=== PATIENT | female | born 1985 | race Caucasian/White ===

== ENCOUNTER 2018-05-04 16:22 | Emergency (ER) | payer SELFPAY ==
[2018-05-04] MEDS ORDERED: Lidocaine 1% w/Epinephrine 1:100K 20 ML VIAL ONE ×3 (17:26→17:30)
[2018-05-04 17:33] LABS: Pregnancy Test - Urine (BHCG) Negative (Negative); Pregu Control Background? CLEAR/WHITE (CLR/WHITE); Pregu Control Bar Appear? YES (CONTROL BAR); Specific Gravity 1.037 (1.002-1.036)
== END 2018-05-04 18:05 | disposition home or self-care (01) ==
LOC: ERS 16:22
DX: L02.411 Cutaneous abscess of right axilla (principal); K21.9 Gastro-esophageal reflux disease without esophagitis; I10 Essential (primary) hypertension; F17.210 Nicotine dependence, cigarettes, uncomplicated; Z79.899 Other long term (current) drug therapy
CPT/HCPCS: 10061; 81025; J2001

== ENCOUNTER 2018-05-07 16:19 | Emergency (ER) | payer SELFPAY | END 2018-05-07 17:40 | disposition home or self-care (01) | LOC: ERS 16:19 | DX: Z48.817 Encounter for surgical aftercare following surgery on the skin and subcutaneous tissue (principal); Z71.6 Tobacco abuse counseling; K21.9 Gastro-esophageal reflux disease without esophagitis; I10 Essential (primary) hypertension; F17.210 Nicotine dependence, cigarettes, uncomplicated | CPT/HCPCS: 99406 ==

== ENCOUNTER 2018-05-20 16:12 | Emergency (ER) | payer SELFPAY ==
[2018-05-20] MEDS ORDERED: Acetaminophen 500 MG TAB ONE (17:49)
[2018-05-20] MEDS ORDERED: Lidocaine 4% Cream 5 GM TUBE w/ Tegaderm ONE (17:49)
== END 2018-05-20 19:20 | disposition home or self-care (01) ==
LOC: ERS 16:12
DX: L02.411 Cutaneous abscess of right axilla (principal); J06.9 Acute upper respiratory infection, unspecified; K21.9 Gastro-esophageal reflux disease without esophagitis; I10 Essential (primary) hypertension; F41.9 Anxiety disorder, unspecified; F17.210 Nicotine dependence, cigarettes, uncomplicated; Z79.899 Other long term (current) drug therapy
CPT/HCPCS: 10061; 87081; 87430; 87804

== ENCOUNTER 2018-12-23 07:27 | Emergency (ER) | payer SELFPAY ==
[2018-12-23 07:50] LABS: #Basophils 0.1 thou/uL (0.0-0.2); #Eosinphils 0.1 thou/uL (0.0-0.7); #Lymphocytes 2.1 thou/uL (1.20-3.40); #Neutrophils 7.1 thou/uL (1.40-6.50); %Basophils 0.7 % (0.0-1.0); %Eosinophils 1.3 % (0.0-10.0); %Lymphocytes 20.4 % (21.0-51.0); %Monocytes 9.6 % (0.0-10.0); Hemoglobin 14.7 g/dL (12.0-16.0); Mean Corpuscular HGB CONC 34.2 g/dL (32.0-36.0); Mean Corpuscular Hemoglobin 30.5 pg (27.0-31.0); Mean Corpuscular Volume 89.2 fL (78.0-98.0); Mean Platelet Volume 8.9 fL (7.4-10.4); Platelet Count 236 thou/uL (130-400); RBC Distribution Width 11.9 % (11.5-14.5); Red Blood Cell (RBC) Count 4.82 mill/uL (4.20-5.40); White Blood Cell (WBC) Count 10.4 thou/uL (4.8-10.8)
[2018-12-23 08:16] LABS: ALT (SGPT) 23 U/L (8-55); AST (SGOT) 15 U/L (5-34); Albumin 4.7 g/dL (3.5-5.0); Alkaline Phosphatase 73 U/L (40-150); Anion Gap 13 mmol/L (10-20); BUN (Urea Nitrogen) 12 mg/dL (7.0-18.7); Bilirubin, Total 0.5 mg/dL (0.2-1.2); CK (CPK) 96 U/L (29-168); Calc. Creatinine Clearance 0 mL/min (70-130); Calcium 9.6 mg/dL (7.8-10.44); Carbon Dioxide 23 mmol/L (22-29); Chloride 104 mmol/L (98-107); Estimated GFR-MDRD 79; Globulin 3.4 g/dL (2.4-3.5); Glucose 130 mg/dL (70-105); Lipase 29 U/L (8-78); Protein, Total 8.1 g/dL (6.0-8.3); Sodium 136 mmol/L (136-145)
[2018-12-23] MEDS ORDERED: Mag-Al 1200 mg/1200 mg/30 ML UDCUP ONE (08:19)
[2018-12-23] MEDS ORDERED: Metoclopramide HCl 10 MG/2 ML VIAL ONE (08:19)
[2018-12-23] MEDS ORDERED: Pantoprazole 40 MG VIAL ONE (08:19)
[2018-12-23] MEDS ORDERED: Lidocaine Viscous Sol 2% 15 ml UD Cup ONE (08:19)
--- NOTE | 2018-12-23 08:19 | RAD ---
PORTABLE CHEST: Date: 12/23/18 HISTORY: Chest pain. FINDINGS: Lungs are clear. No infiltrate. Vascular markings normal. Heart and mediastinum unremarkable. IMPRESSION: No acute findings. POS: OFF
--- NOTE | 2018-12-23 09:23 | CT ---
CT BRAIN: DATE: 12/23/2018. PROVIDED CLINICAL HISTORY: Headache. FINDINGS: The ventricular system appears normal in size and morphology. There is no evidence for intracranial hemorrhage or mass effect. Mild limitations due to patient motion. The extracranial soft tissues an d osseous structures demonstrate no acute abnormality. IMPRESSION: No evidence for intracranial hemorrhage or mass effect. POS: TPC
[2018-12-23] MEDS ORDERED: Ketorolac Tromethamine 30 MG/ML VIAL ONE (10:02)
--- NOTE | 2018-12-26 23:43 | EKG ---
Test Reason : Blood Pressure : / mmHG Vent. Rate : 073 BPM Atrial Rate : 073 BPM P-R Int : 156 ms QRS Dur : 084 ms QT Int : 386 ms P-R-T Axes : 016 -02 002 degrees QTc Int : 425 ms Normal sinus rhythm Normal ECG Confirmed by ANA ROSA ADAMS ([id number]), staff editor ALICIA RUEDA ([id number] on 12/26/2018 11:42:45 PM Referred By: Confirmed By:ANA ROSA ADAMS
--- NOTE | 2018-12-26 23:43 | EKG ---
Test Reason : Blood Pressure : / mmHG Vent. Rate : 086 BPM Atrial Rate : 086 BPM P-R Int : 152 ms QRS Dur : 086 ms QT Int : 348 ms P-R-T Axes : 014 003 036 degrees QTc Int : 416 ms Normal sinus rhythm Normal ECG Confirmed by ANA ROSA ADAMS ([id number]), associate editor ALICIA RUEDA ([id number] on 12/26/2018 11:42:43 PM Referred By: Confirmed By:ANA ROSA ADAMS
== END 2018-12-23 11:47 | disposition home or self-care (01) ==
LOC: ERS 07:27
DX: R07.89 Other chest pain (principal); I10 Essential (primary) hypertension; F41.9 Anxiety disorder, unspecified; K21.9 Gastro-esophageal reflux disease without esophagitis; Z87.891 Personal history of nicotine dependence; Z79.899 Other long term (current) drug therapy
CPT/HCPCS: 70450; 71045; 80053; 82550; 83690; 84484; 85025; 93005; 96365; 96375; C9113; J1885; J2765

== ENCOUNTER 2019-08-16 13:54 | Outpatient (CLI) | payer BC ==
[~2019-08-16 13:54] MED LIST: Iopamidol-370 76% 500 ML 1 ML ONE
--- NOTE | 2019-08-16 15:03 | CT ---
CT Abdomen Pelvis W Con: 08/16/2019 12:00 AM CLINICAL INFORMATION: Left upper and lower quadrant abdominal pain for a few months COMPARISON: None. TECHNIQUE: Multiple contiguous axial images were obtained and a CT of the abdomen and pelvis with IV contrast. Oral contrast was administered. Coronal and sagittal reformats were performed. FINDINGS: Lower Chest: within normal limits. Abdomen: Liver: within normal limits. Bile Ducts: Normal caliber. Gallbladder: No calcified gallstones. Normal caliber wall. Pancreas: within normal limits. Spleen: within normal limits. Adrenals: within normal limits. Kidneys: within normal limits. Pelvis: Reproductive Organs: No pelvic masses. Ureters: within normal limits. Bladder: within normal limits. Peritoneum: No ascites or free air, no fluid collection. Bowel: Normal caliber. Normal appendix. Mesentery and Retroperitoneum: No enlarged mesenteric or retroperitoneal lymph nodes. Vessels: Normal. Abdominal Wall: within normal limits. Bones: Within normal limits IMPRESSION: No evidence of acute intraabdominal or pelvic abnormality.
== END 2019-08-16 13:55 | disposition home or self-care (01) ==
LOC: BICCT 13:54
PROVIDERS: ATTEND Family Medicine
DX: R10.9 Unspecified abdominal pain (principal); K92.1 Melena
CPT/HCPCS: 74177

== ENCOUNTER 2019-08-30 14:38 | Emergency (ER) | payer BC ==
[2019-08-30 15:42] LABS: #Basophils 0.1 thou/uL (0.0-0.2); #Eosinphils 0.1 thou/uL (0.0-0.7); #Lymphocytes 2.1 thou/uL (1.20-3.40); #Monocytes 0.8 thou/uL (0.11-0.59); %Basophils 0.6 % (0.0-1.0); %Eosinophils 1.2 % (0.0-10.0); %Lymphocytes 22.8 % (21.0-51.0); %Monocytes 8.4 % (0.0-10.0); Hemoglobin 13.3 g/dL (12.0-16.0); Mean Corpuscular HGB CONC 34.2 g/dL (32.0-36.0); Mean Corpuscular Volume 90.5 fL (78.0-98.0); Mean Platelet Volume 9.6 fL (7.4-10.4); Platelet Count 263 thou/uL (130-400); Red Blood Cell (RBC) Count 4.31 mill/uL (4.20-5.40)
[2019-08-30 16:06] LABS: ALT (SGPT) 20 U/L (8-55); AST (SGOT) 15 U/L (5-34); Albumin 4.5 g/dL (3.5-5.0); Alkaline Phosphatase 59 U/L (40-110); Anion Gap 11 mmol/L (10-20); BUN (Urea Nitrogen) 8 mg/dL (7.0-18.7); Bilirubin, Total 0.4 mg/dL (0.2-1.2); Calc. Creatinine Clearance 0 mL/min (70-130); Calcium 9.7 mg/dL (7.8-10.44); Carbon Dioxide 26 mmol/L (22-29); Chloride 105 mmol/L (98-107); Estimated GFR-MDRD 81; Globulin 3.1 g/dL (2.4-3.5); Glucose 93 mg/dL (70-105); Lipase 15 U/L (8-78); Potassium 3.7 mmol/L (3.5-5.1); Protein, Total 7.6 g/dL (6.0-8.3); Sodium 138 mmol/L (136-145)
[2019-08-30 16:55] LABS: Bacteria/HPF None Seen HPF (None Seen); Bilirubin Negative (Negative); Blood, Urine 1+ (Negative); Clarity Clear (Clear); Glucose, Urine (Dipstick) Normal (Negative); Leukocyte Negative Leu/uL (Negative); Mucous/LPF 2+ LPF (<2+); Nitrite Negative (Negative); Protein, Urine (Dipstick) 20 mg/dL (Neg-Trace); RBC/HPF 0-3 HPF (0-3); Urobilinogen Normal mg/dL (Less than 2); WBC/HPF 0-3 HPF (0-3)
== END 2019-08-30 21:00 | disposition left against medical advice (07) ==
LOC: ERS 14:38
DX: Z53.21 Procedure and treatment not carried out due to patient leaving prior to being seen by health care provider (principal)
CPT/HCPCS: 36415; 80053; 81003; 81015; 83690; 85025

== ENCOUNTER 2020-03-23 14:30 | Outpatient (CLI) | payer BC ==
--- NOTE | 2020-03-23 19:57 | CT ---
CT OF THE PELVIS WITH IV CONTRAST: 03/23/20 INDICATION: History of perirectal abscess. COMPARISON: Prior CT of the abdomen and pelvis with contrast dated 08/16/19. FINDINGS: No definite drainable fluid collection is seen within the perianal or perirectal space. The visualize d reproductive structures and decompressed bladder appear within normal limits. There is a normal simona endix in the right lower quadrant. No definite enlarged lymph nodes are evident. The visualized aspec ts of the large and small bowel appear within normal limits. No definite acute osseous abnormality is evident. IMPRESSION: No definite perirectal abscess demonstrated. The ischioanal fossa appears within normal limits. No en larged lymph nodes or free fluid is evident within the pelvis. POS: BH
== END 2020-03-23 14:31 | disposition home or self-care (01) ==
LOC: BICCT 14:30
PROVIDERS: ATTEND Family Medicine
DX: K61.1 Rectal abscess (principal)
CPT/HCPCS: 72193